=== PATIENT | male | born 1955 | race Native Hawaiian/Other Pacific Islander ===

== ENCOUNTER 2016-10-19 12:30 | Emergency (ER) | payer OTHER ==
[~2016-10-19] VITALS: Ht 175.3 cm; Wt 83.9 kg
[~2016-10-19 12:30] MED LIST: ALBU90AE13 INH; ALPR0.2566 PO; ATEN50TA36 PO; BUDE1AER3 INH; CYCL10TA35 PO; DICY20TA34 PO; FLUTMIS14 INH; LISI20TA11 PO; LORCET PLUS 7.51 TAB PO; NEURONTIN 100M100 MG OR; PHEN100C15 PO; SERT50TA PO
[2016-10-19 13:42] LABS: POTASSIUM 4.6 mmol/L (3.6-5.2)
[2016-10-19] MEDS ORDERED: HYDR10TA47 PO (13:46)
[2016-10-19] MEDS ORDERED: NEURONTIN 100M100 MG OR (13:47)
[2016-10-19] MEDS ORDERED: ACID REDUCER150 MG OR (13:49)
[2016-10-19] MEDS ORDERED: TRAM50TA PO (13:50)
[2016-10-19 13:57] LABS: PLATELET COUNT 268 K/uL (142-355)
[2016-10-21 08:20] VITALS: TEMP 98.1
[2016-10-21 10:22] VITALS: BP 154/85
== END 2016-10-21 10:23 | disposition home or self-care (01) ==
LOC: ED 12:30
PROVIDERS: Emergency Medicine
DX: J44.1 Chronic obstructive pulmonary disease with (acute) exacerbation (principal); R45.1 Restlessness and agitation; F15.951 Other stimulant use, unspecified with stimulant-induced psychotic disorder with hallucinations
CPT/HCPCS: 36415; 36600; 80053; 80307; 80320; 80329; 81000; 82805; 85027; 96372; 99285; G0479; J1100; J1200; J1630; J2060; J3486

== ENCOUNTER 2017-03-16 12:10 | Inpatient (IN) | payer OTHER ==
[~2017-03-16] VITALS: Ht 167.6 cm; Wt 82.7 kg
[~2017-03-16 12:10] MED LIST changes: +ACID REDUCER150 MG PO; +HYDR10TA47 PO; +NEURONTIN 100M100 MG PO; +TRAM50TA PO
[2017-03-16 14:11] VITALS: BP 120/81; TEMP 98.1; Ht 167.6 cm; Wt 82.7 kg
[2017-03-16 14:17] LABS: PLATELET COUNT 348 K/uL (142-355)
[2017-03-16 15:06] LABS: SODIUM 137 mmol/L (136-145)
[2017-03-16] MEDS ORDERED: LISI20TA11 PO (15:37)
[2017-03-16 16:00] VITALS: BP 111/78; TEMP 97.9
[2017-03-16 20:00] VITALS: BP 121/80; TEMP 98.2
[2017-03-17] VITALS: BP 124/82; TEMP 97.5
[2017-03-17 04:00] VITALS: BP 147/90; TEMP 97.9
[2017-03-17 05:40] LABS: PLATELET COUNT 284 K/uL (142-355)
[2017-03-17 07:33] VITALS: BP 144/82; TEMP 98.2
[2017-03-17 10:38] LABS: POTASSIUM 4.4 mmol/L (3.6-5.2); SODIUM 135 mmol/L (136-145)
[2017-03-17 12:00] VITALS: BP 136/85; TEMP 98.3
[2017-03-17 16:00] VITALS: BP 143/89; TEMP 97.9
[2017-03-17 20:00] VITALS: BP 147/79; TEMP 98
[2017-03-18] VITALS: BP 127/85; TEMP 97.6
[2017-03-18 04:00] VITALS: BP 125/80; TEMP 97.9
[2017-03-18 05:41] LABS: PLATELET COUNT 312 K/uL (142-355)
[2017-03-18 05:56] LABS: POTASSIUM 4.6 mmol/L (3.6-5.2); SODIUM 134 mmol/L (136-145)
[2017-03-18 08:00] VITALS: BP 146/87; TEMP 97.9
--- NOTE | 2017-03-18 12:10 | NUR ---
D/C INSTURCTIONS GIVEN. IV D/C'D. PT INSTURCTED TO MAKE F/U APT IN 3-5 DAYS. PT HAS NO FUTHER QS. PT WALKED OUT AT THIS TIME. NO PROBLEMS NOTED.
== END 2017-03-18 12:15 | disposition home or self-care (01) | DRG 192 ==
LOC: MED/SURG 12:10
PROVIDERS: ADMIT Family Medicine
DX: J44.1 Chronic obstructive pulmonary disease with (acute) exacerbation (principal); R07.89 Other chest pain; I10 Essential (primary) hypertension; M15.8 Other polyosteoarthritis
CPT/HCPCS: 36415; 36591; 36600; 80053; 82550; 82553; 82805; 83735; 84484; 85027; 93005; 94640; 94664; 94760; 96367; 96372; 96374; 96375; J1650; J1956; J2930

== ENCOUNTER 2018-04-23 08:35 | Outpatient (CLI) | payer OTHER ==
[~2018-04-23 08:35] MED LIST changes: +CARAFATE1 GM PO; +PROAIR HFA IN
== END 2018-04-23 19:51 | disposition home or self-care (01) ==
LOC: MRI 08:35
DX: M54.16 Radiculopathy, lumbar region (principal); C34.90 Malignant neoplasm of unspecified part of unspecified bronchus or lung; R06.02 Shortness of breath

== ENCOUNTER 2018-05-01 11:19 | Observation (INO) | payer OTHER ==
[~2018-05-01] VITALS: Ht 172.7 cm; Wt 81.7 kg
[2018-05-01 14:51] LABS: PLATELET COUNT 183 K/uL (142-355)
[2018-05-01 15:05] LABS: POTASSIUM 3.7 mmol/L (3.6-5.2)
[2018-05-01 17:11] VITALS: BP 94/62; TEMP 98.3; Ht 172.7 cm; Wt 81.7 kg
[2018-05-01] MEDS ORDERED: DONEPEZIL HYDRO10 MG PO (18:10)
[2018-05-01 20:00] VITALS: BP 135/66; TEMP 99.4
[2018-05-02] VITALS: BP 145/91; TEMP 99.4
[2018-05-02 04:17] VITALS: BP 143/87; TEMP 98.8
[2018-05-02 04:39] LABS: PLATELET COUNT 187 K/uL (142-355)
[2018-05-02 04:59] LABS: POTASSIUM 4.6 mmol/L (3.6-5.2)
[2018-05-02 08:07] VITALS: BP 119/80; TEMP 98.7
[2018-05-02 12:18] VITALS: BP 123/18; TEMP 98.8
[2018-05-02 16:00] VITALS: BP 114/79; TEMP 97.9
[2018-05-02 20:22] VITALS: BP 127/83; TEMP 97.6
[2018-05-03] VITALS: BP 103/72; TEMP 97.8
[2018-05-03 04:00] VITALS: BP 138/92; TEMP 98.3
[2018-05-03 05:17] LABS: PLATELET COUNT 211 K/uL (142-355)
[2018-05-03 05:43] LABS: POTASSIUM 3.6 mmol/L (3.6-5.2)
[2018-05-03 08:00] VITALS: BP 134/80; TEMP 98.1
== END 2018-05-03 11:55 | disposition home or self-care (01) ==
LOC: MED/SURG 11:19
PROVIDERS: ADMIT Family Medicine
DX: J44.1 Chronic obstructive pulmonary disease with (acute) exacerbation (principal); J44.0 Chronic obstructive pulmonary disease with (acute) lower respiratory infection; J18.8 Other pneumonia, unspecified organism; I10 Essential (primary) hypertension; R06.2 Wheezing
CPT/HCPCS: 36600; 80053; 82805; 83605; 83880; 85027; 87070; 87077; 87186; 87205; 90471; 90472; 90658; 90732; 93005; 94640; 94664; 94668; 94760; 99220; G0378; G0379; J0456; J0696; J2930

== ENCOUNTER 2018-06-11 10:37 | Outpatient (CLI) | payer OTHER ==
[~2018-06-11 10:37] MED LIST changes: +DONEPEZIL HYDRO10 MG PO
== END 2018-06-11 22:49 | disposition home or self-care (01) ==
LOC: CT 10:37
DX: M54.16 Radiculopathy, lumbar region (principal); J44.1 Chronic obstructive pulmonary disease with (acute) exacerbation

== ENCOUNTER 2018-10-18 10:55 | Outpatient (CLI) | payer OTHER ==
[~2018-10-18] VITALS: Ht 175.3 cm; Wt 83.0 kg
[2018-10-18 11:40] VITALS: BP 123/88; TEMP 98.5
== END 2018-10-18 20:32 | disposition home or self-care (01) ==
LOC: INF 10:55
DX: E86.0 Dehydration (principal)
CPT/HCPCS: 96360; 96361

== ENCOUNTER 2019-02-01 12:50 | Outpatient (CLI) | payer OTHER | END 2019-02-01 21:46 | disposition home or self-care (01) | LOC: CT 12:50 | DX: R91.1 Solitary pulmonary nodule (principal) ==

== ENCOUNTER 2019-03-13 11:23 | Outpatient (CLI) | payer OTHER | END 2019-03-13 20:12 | disposition home or self-care (01) | LOC: RAD 11:23 | DX: M79.672 Pain in left foot (principal) ==

== ENCOUNTER 2019-03-14 11:47 | Outpatient (CLI) | payer OTHER | END 2019-03-14 21:52 | disposition home or self-care (01) | LOC: RAD 11:47 | DX: M79.605 Pain in left leg (principal); M25.572 Pain in left ankle and joints of left foot ==

== ENCOUNTER 2019-04-13 09:52 | Outpatient (CLI) | payer OTHER | END 2019-04-13 20:02 | disposition home or self-care (01) | LOC: LAB 09:52 | DX: R19.7 Diarrhea, unspecified (principal) | CPT/HCPCS: 83630; 87015; 87045; 87324; 87328; 87329; 87449; 87899 ==

== ENCOUNTER 2019-08-23 09:12 | Outpatient (CLI) | payer OTHER | END 2019-08-23 19:40 | disposition home or self-care (01) | LOC: RAD 09:12 | DX: Z13.820 Encounter for screening for osteoporosis (principal); M81.8 Other osteoporosis without current pathological fracture ==

== ENCOUNTER 2020-06-21 13:43 | Emergency (ER) | payer OTHER ==
[~2020-06-21] VITALS: Ht 175.3 cm; Wt 83.0 kg
[2020-06-21 14:00] VITALS: TEMP 98.7
[2020-06-21 14:27] LABS: PLATELET COUNT 336 K/uL (142-355)
[2020-06-21 14:37] LABS: POTASSIUM 5.2 mmol/L (3.6-5.2); SODIUM 137 mmol/L (136-145)
[2020-06-21 14:44] LABS: PARTIAL THROMBOPLASTIN TIME 24.3 SECONDS (24.5-33.6)
[2020-06-21 17:17] VITALS: BP 120/76
== END 2020-06-21 17:18 | disposition home or self-care (01) ==
LOC: ED 13:43
PROVIDERS: Hospitalist
DX: J44.1 Chronic obstructive pulmonary disease with (acute) exacerbation (principal); J40 Bronchitis, not specified as acute or chronic; I50.9 Heart failure, unspecified; F17.210 Nicotine dependence, cigarettes, uncomplicated
CPT/HCPCS: 36415; 80053; 82550; 83880; 84484; 85027; 85610; 85730; 93005; 94664; 96365; 96366; 96375; 99284; J1940; J1956; J2405; J2930

== ENCOUNTER 2020-09-02 13:29 | Emergency (ER) | payer OTHER ==
[~2020-09-02] VITALS: Ht 175.3 cm; Wt 83.0 kg
[2020-09-02 13:42] VITALS: BP 94/71; TEMP 97.1
[2020-09-02 14:09] LABS: PLATELET COUNT 323 K/uL (142-355)
[2020-09-02 14:18] LABS: POTASSIUM 4.6 mmol/L (3.6-5.2)
[2020-09-02] MEDS ORDERED: ASPIR-8181 MG PO (18:15)
[2020-09-02] MEDS ORDERED: ATEN50TA36 PO (18:16)
[2020-09-02] MEDS ORDERED: DULO60CA2 PO (18:17)
[2020-09-02] MEDS ORDERED: ACID CONTROL MA20 MG PO (18:18)
[2020-09-02] MEDS ORDERED: FURO40TA93 PO (18:19)
[2020-09-02] MEDS ORDERED: GABA300C2 PO (18:20)
[2020-09-02] MEDS ORDERED: MOBIC7.5 M1 PO (18:21)
[2020-09-02] MEDS ORDERED: HYDROCODONE BIT1 TA1 PO (18:21)
[2020-09-02] MEDS ORDERED: MONTELUKAST SOD10 MG PO (18:23)
[2020-09-02] MEDS ORDERED: NUCYNTA ER50 MG PO (18:24)
[2020-09-02] MEDS ORDERED: VITAMIN D35000 UNI6 PO (18:24)
[2020-09-02] MEDS ORDERED: ALPR0.5T24 PO (18:25)
[2020-09-08] MEDS ORDERED: DIVA250T PO (09:35)
[2020-09-08] MEDS ORDERED: OLAN2.5T2 PO (09:35)
[2020-09-08] MEDS ORDERED: DULO30CA PO (09:36)
== END 2020-09-02 15:18 | disposition other institution (70) ==
LOC: ED 13:29
PROVIDERS: Family Medicine
DX: F41.8 Other specified anxiety disorders (principal); F10.20 Alcohol dependence, uncomplicated; J44.9 Chronic obstructive pulmonary disease, unspecified; Z11.59 Encounter for screening for other viral diseases; Z04.6 Encounter for general psychiatric examination, requested by authority; F17.210 Nicotine dependence, cigarettes, uncomplicated
CPT/HCPCS: 80053; 80307; 80320; 80329; 81000; 85027; 87635; 93005; 99283; 99285; U0003

== ENCOUNTER 2021-02-03 09:25 | Outpatient (CLI) | payer OTHER ==
[~2021-02-03 09:25] MED LIST changes: +ACID CONTROL MA20 MG PO; +ALPR0.5T24 PO; +ASPIR-8181 MG PO; +DIVA250T PO; +DULO30CA PO; +DULO60CA2 PO; +FURO40TA93 PO; +GABA300C2 PO; +HYDROCODONE BIT1 TA1 PO; +MOBIC7.5 M1 PO; +MONTELUKAST SOD10 MG PO; +NUCYNTA ER50 MG PO; +OLAN2.5T2 PO; +VITAMIN D35000 UNI6 PO
== END 2021-02-03 15:41 | disposition home or self-care (01) ==
LOC: RAD 09:25
PROVIDERS: ATTEND Physical Medicine & Rehabilitation Pain Medicine
DX: M48.062 Spinal stenosis, lumbar region with neurogenic claudication (principal)

== ENCOUNTER 2021-02-08 10:14 | Outpatient (CLI) | payer OTHER | END 2021-02-08 21:44 | disposition home or self-care (01) | LOC: MRI 10:14 | PROVIDERS: ATTEND Physical Medicine & Rehabilitation Pain Medicine | DX: M48.062 Spinal stenosis, lumbar region with neurogenic claudication (principal) ==

== ENCOUNTER 2022-02-01 09:32 | Outpatient (CLI) | payer OTHER | END 2022-02-01 19:03 | disposition home or self-care (01) | LOC: RAD 09:32 | PROVIDERS: ATTEND Nurse Practitioner Family | DX: J44.1 Chronic obstructive pulmonary disease with (acute) exacerbation (principal) ==

== ENCOUNTER 2022-02-17 11:05 | Inpatient (IN) | payer OTHER ==
[~2022-02-17] VITALS: Ht 170.2 cm; Wt 67.2 kg
[2022-02-17] VITALS (10 sets, daily range): BP systolic 75–150; BP diastolic 45–87; TEMP 96.8–100
[2022-02-17 11:44] LABS: POTASSIUM 3.2 mmol/L (3.6-5.2)
[2022-02-17 11:59] LABS: PLATELET COUNT 265 K/uL (142-355)
[2022-02-18] VITALS (7 sets, daily range): BP systolic 101–150; BP diastolic 66–89; TEMP 97.6–100
[2022-02-18 05:12] LABS: POTASSIUM 3.2 mmol/L (3.6-5.2)
[2022-02-18 05:17] LABS: PLATELET COUNT 116 K/uL (142-355)
[2022-02-18] MEDS ORDERED: ALBUTEROL0.083 % INH (10:21)
[2022-02-18] MEDS ORDERED: TIZANIDINE HYDRO4 MG PO (10:22)
[2022-02-18] MEDS ORDERED: DIVALPROEX250 MG PO (10:23)
[2022-02-18] MEDS ORDERED: BREZTRI AEROSPH1 AER INH (10:24)
[2022-02-18] MEDS ORDERED: ALLO100T22 PO (10:25)
[2022-02-18] MEDS ORDERED: HYDROCODONE BIT1 TAB PO (10:26)
[2022-02-18] MEDS ORDERED: FLUTICASON50 MCG/AC1 NAS (10:27)
[2022-02-18] MEDS ORDERED: ALPR0.5T24 PO (10:28)
[2022-02-18] MEDS ORDERED: BUSPIRONE5 MG PO (10:29)
[2022-02-18] MEDS ORDERED: ONDANSETRON PO (10:30)
[2022-02-18] MEDS ORDERED: PRED10TA27 PO (10:31)
[2022-02-19] VITALS: BP 161/99; TEMP 96.4
[2022-02-19 04:00] VITALS: BP 144/78; TEMP 97.7
[2022-02-19 05:17] LABS: PLATELET COUNT 222 K/uL (142-355)
[2022-02-19 08:00] VITALS: BP 155/92; TEMP 97.6
[2022-02-19 12:00] VITALS: BP 147/86; TEMP 98.1
[2022-02-19 16:00] VITALS: BP 159/89; TEMP 97.9
[2022-02-19 20:00] VITALS: BP 159/95; TEMP 98.1
[2022-02-20] VITALS: BP 148/90; TEMP 98.2
[2022-02-20 04:00] VITALS: BP 149/82; TEMP 98.1
[2022-02-20 04:55] LABS: PLATELET COUNT 249 K/uL (142-355)
[2022-02-20 08:00] VITALS: BP 157/91; TEMP 98.1
[2022-02-20 12:19] VITALS: BP 154/105; TEMP 98.4
== END 2022-02-20 14:15 | disposition home or self-care (01) | DRG 177 ==
LOC: ED 11:05 → MED/SURG 16:00
PROVIDERS: Emergency Medicine; ADMIT Family Medicine; ATTEND Family Medicine
DX: U07.1 COVID-19 (principal); J12.82 Pneumonia due to coronavirus disease 2019; C34.90 Malignant neoplasm of unspecified part of unspecified bronchus or lung; J44.0 Chronic obstructive pulmonary disease with (acute) lower respiratory infection; J44.1 Chronic obstructive pulmonary disease with (acute) exacerbation; E86.0 Dehydration; F41.8 Other specified anxiety disorders; D64.89 Other specified anemias; F17.290 Nicotine dependence, other tobacco product, uncomplicated; E88.09 Other disorders of plasma-protein metabolism, not elsewhere classified; E87.8 Other disorders of electrolyte and fluid balance, not elsewhere classified; F03.90 Unspecified dementia, unspecified severity, without behavioral disturbance, psychotic disturbance, mood disturbance, and anxiety; F10.10 Alcohol abuse, uncomplicated
CPT/HCPCS: 36415; 36600; 80053; 82805; 83605; 83735; 83880; 84100; 84484; 85027; 85379; 87040; 87635; 93005; 94667; 94668; 94760; 96365; 96366; 99284; J0248; J0456; J0696; J1650; J1956; J2405; J2920; J3475; U0003

== ENCOUNTER 2022-11-22 11:10 | Observation (INO) | payer OTHER ==
[~2022-11-22] VITALS: Ht 172.7 cm; Wt 66.5 kg
[~2022-11-22 11:10] MED LIST changes: -ACID CONTROL MA20 MG PO; +ALBUTEROL0.083 % INH; +ALLO100T22 PO; +BREZTRI AEROSPH1 AER INH; +BUSPIRONE5 MG PO; +DIVALPROEX250 MG PO; +FAMO20TA4 PO; +FLUTICASON50 MCG/AC1 NAS; +HYDROCODONE BIT1 TAB PO; +ONDANSETRON PO; +PRED10TA27 PO; +TIZA4TAB5 PO
[2022-11-22 13:39] LABS: PLATELET COUNT 381 K/uL (142-355)
[2022-11-22 14:04] LABS: POTASSIUM 4.1 mmol/L (3.6-5.2)
[2022-11-22 14:05] VITALS: BP 99/57; TEMP 98.8; Ht 172.7 cm; Wt 66.5 kg
[2022-11-22] MEDS ORDERED: DONE5TAB PO (14:34)
[2022-11-22] MEDS ORDERED: ALPR0.2566 PO (14:34)
[2022-11-22] MEDS ORDERED: MONT10TA PO (14:34)
[2022-11-22] MEDS ORDERED: TRELEGY ELLIPTA1 AE1 INH (14:36)
[2022-11-22] MEDS ORDERED: ACETYLCYSTEINE 600 MG PO (14:37)
[2022-11-22 16:00] VITALS: BP 89/63; TEMP 98.6
[2022-11-22 20:00] VITALS: BP 105/66; TEMP 98.7
[2022-11-22 23:54] VITALS: BP 123/77; TEMP 102.6
[2022-11-23 04:00] VITALS: BP 90/70; TEMP 99
[2022-11-23 07:27] LABS: PLATELET COUNT 313 K/uL (142-355)
[2022-11-23 07:39] VITALS: BP 88/59; TEMP 98.6
[2022-11-23 07:52] VITALS: BP 92/60
[2022-11-23 11:34] VITALS: TEMP 98
[2022-11-23 16:00] VITALS: BP 91/60; TEMP 97.6
[2022-11-23 20:00] VITALS: BP 103/67; TEMP 98
[2022-11-24] VITALS: BP 121/78; TEMP 98
[2022-11-24 04:00] VITALS: BP 128/86; TEMP 98
[2022-11-24 08:00] VITALS: BP 120/79; TEMP 97.6
[2022-11-24 09:39] LABS: POTASSIUM 3.7 mmol/L (3.6-5.2)
[2022-11-24 09:50] LABS: PLATELET COUNT 390 K/uL (142-355)
[2022-11-24] MEDS ORDERED: PRED20TA27 PO (10:31)
[2022-11-24] MEDS ORDERED: LEVOFLOXACIN500 MG PO (10:31)
== END 2022-11-24 11:56 | disposition home or self-care (01) ==
LOC: MED/SURG 11:10
PROVIDERS: ADMIT Internal Medicine; ATTEND Internal Medicine
DX: J18.8 Other pneumonia, unspecified organism (principal); J44.9 Chronic obstructive pulmonary disease, unspecified; F17.210 Nicotine dependence, cigarettes, uncomplicated; Z99.81 Dependence on supplemental oxygen; D72.828 Other elevated white blood cell count; R09.02 Hypoxemia; R06.09 Other forms of dyspnea; N28.89 Other specified disorders of kidney and ureter; E86.9 Volume depletion, unspecified; M10.9 Gout, unspecified; I10 Essential (primary) hypertension; F41.8 Other specified anxiety disorders; G89.4 Chronic pain syndrome; K21.9 Gastro-esophageal reflux disease without esophagitis
CPT/HCPCS: 80048; 80053; 85007; 85027; 87040; 87070; 87077; 87186; 87205; 93005; 94664; 94760; 96360; 96361; 96365; 96367; 96374; 96375; 99220; 99221; G0378; G0379; J0456; J0696; J1650; J2930

== ENCOUNTER 2023-01-13 09:12 | Outpatient (CLI) | payer OTHER ==
[~2023-01-13 09:12] MED LIST changes: +ACETYLCYSTEINE 600 MG PO; +DONE5TAB PO; +LEVOFLOXACIN500 MG PO; +MONT10TA PO; +PRED20TA27 PO; +TRELEGY ELLIPTA1 AE1 INH
== END 2023-01-13 18:57 | disposition home or self-care (01) ==
LOC: MRI 09:12
PROVIDERS: ATTEND Physician Assistant
DX: M54.12 Radiculopathy, cervical region (principal)